=== PATIENT | male | born 1960 | race African-American/Black ===

== ENCOUNTER 2021-06-14 12:07 | Emergency (ER) | payer MEDICAID ==
[~2021-06-14] VITALS: Ht 172.7 cm; Wt 109.0 kg
[2021-06-14 12:10] VITALS: BP 172/72
== END 2021-06-14 13:05 | disposition left against medical advice (07) ==
LOC: ER 12:07
DX: Z13.9 Encounter for screening, unspecified (principal); I49.9 Cardiac arrhythmia, unspecified
CPT/HCPCS: 93005; 99283

== ENCOUNTER 2021-07-30 19:53 | Inpatient (IN) | payer MEDICAID ==
[~2021-07-30] VITALS: Ht 170.2 cm; Wt 115.8 kg
[2021-07-30 20:50] LABS: BASOPHILS % 0.7 % (0.0-2.0); EOSINOPHILS % 0.5 % (0.0-5.0); HEMATOCRIT. 46.4 % (42.0-52.0); HEMOGLOBIN. 14.7 g/dL (14.0-18.0); MEAN CORPUSCULAR HEMOGLOBIN 24.1 pg (28.0-32.0); MEAN CORPUSCULAR VOLUME 76.1 fL (80.0-94.0); MEAN PLATELET VOLUME 8.7 fl (7.4-10.4); MONOCYTES % 8.3 % (2.0-8.0); NEUTROPHILS % 75.5 % (40.0-76.0); PLATELET 234 x1000/uL (130-400); RED BLOOD CELL COUNT 6.09 mill/uL (4.7-6.1); RED CELL DISTRIBUTION WIDTH 17.9 % (11.6-14.6)
[2021-07-30 20:53] LABS: CHLORIDE 104 mEq/L (98-107)
[2021-07-30 20:57] LABS: ETHANOL BLOOD < 10 mg/dL
[2021-07-30] MEDS: LABETALOL 5MG/ML SYR 20 MG/4 ML SYRINGE IV NR (21:02)
[2021-07-30 21:17] LABS: CLARITY URINE CLEAR (CLEAR); COLOR URINE YELLOW (YELLOW); KETONES URINE NEGATIVE (NEGATIVE); LEUKOCYTE ESTERASE URINE NEGATIVE (NEGATIVE); NITRITE URINE NEGATIVE (NEGATIVE); OCCULT BLOOD URINE NEGATIVE (NEGATIVE); PROTEIN URINE NEGATIVE (NEGATIVE); SPECIFIC GRAVITY URINE 1.017 (1.005-1.030); UROBILINOGEN URINE 0.2 E.U./dL (0.2-1.0)
[2021-07-30 21:27] LABS: *BARBITURATES SCREEN URINE NEGATIVE (NEGATIVE); *BENZODIAZEPINES SCREEN URINE NEGATIVE (NEGATIVE); *COCAINE SCREEN URINE NEGATIVE (NEGATIVE)
[2021-07-30 21:28] LABS: *AMPHETAMINES SCREEN URINE NEGATIVE (NEGATIVE); METHADONE URINE SCREEN NEGATIVE (NEGATIVE); OPIATES URINE SCREEN NEGATIVE (NEGATIVE)
[2021-07-30 21:29] LABS: CANNABINOID URINE SCREEN NEGATIVE (NEGATIVE); PHENCYCLIDINE URINE SCREEN PRESUMTIVE POSITIVE (NEGATIVE)
[2021-07-31] MEDS ORDERED: ASPIRIN 325MG EC TABLET PO ONE (00:30)
[2021-07-31] MEDS ORDERED: FAMOTIDINE 20MG TABLET PO SCH (01:00)
[2021-07-31] MEDS: LABETALOL 5MG/ML SYR 20 MG/4 ML SYRINGE IV NR (01:12)
[2021-07-31 07:00] VITALS: BP 131/71
== END 2021-07-31 07:00 | disposition left against medical advice (07) | DRG 47 ==
LOC: ER 19:53 → MICUSO 22:26 → EDBEDREQTM 22:29 → EDBEDREQ 22:29 → EDBEDREQSVC 22:29 → MICUSO 07-31 07:25 → 8WST 07-31 07:25
PROVIDERS: ADMIT Internal Medicine; ATTEND Internal Medicine
DX: G45.9 Transient cerebral ischemic attack, unspecified (principal); E78.5 Hyperlipidemia, unspecified; I10 Essential (primary) hypertension; Z53.29 Procedure and treatment not carried out because of patient's decision for other reasons; K21.9 Gastro-esophageal reflux disease without esophagitis; Z86.73 Personal history of transient ischemic attack (TIA), and cerebral infarction without residual deficits; F16.10 Hallucinogen abuse, uncomplicated
CPT/HCPCS: 36415; 71045; 80053; 80305; 80320; 81003; 82962; 84484; 85025; 93005; 99291; J3490; G0480